=== PATIENT | female | born 1990 | race Caucasian/White ===

== ENCOUNTER 2016-11-07 07:11 | Emergency (ER) | payer OTHER ==
[~2016-11-07] VITALS: Ht 167.6 cm; Wt 111.6 kg
[~2016-11-07 07:11] MED LIST: ADDERALL 10 MG10 MG PO; BACTRIM DS TAB1 EACH PO; CYCLOBENZAPRINE5 MG PO; DEXTROAMP-AMPHE30 MG PO; IBUPROFEN 600600 M1 PO; ULTRAM 50MG TAB50 MG PO
[2016-11-07 08:11] VITALS: BP 127/76
== END 2016-11-07 08:00 | disposition home or self-care (01) ==
LOC: ER 07:11
DX: E04.1 Nontoxic single thyroid nodule (principal); E11.9 Type 2 diabetes mellitus without complications; R51 Headache

== ENCOUNTER 2017-05-08 15:33 | Emergency (ER) | payer OTHER ==
[~2017-05-08] VITALS: Ht 165.1 cm; Wt 113.4 kg
--- NOTE | ~2017-05-08 | EKG ---
[place] [address] [email or web address] [address] ELECTROCARDIOGRAM REPORT Name: SHILO BAHENACAILIN RAMIRO Room #: [facility]#: [id number] Admission: 05/08/17 Attend Phys: Discharge: 05/08/17 Date of : [birth year] Report #: [id number] THIS REPORT FOR: //name// [facility] ED Test Date: 2017-05-08 Test Time: 16:05:28 Pat Name: CAILIN BAHENA Department: Room: Gender: F Rda: REX : 1990 Requested By: Hafsa Aguilera Order Number: [id number] MD: Abhi Escoto Measurements Intervals [place] Rate: 85 P: -9 KS: 152 QRS: 5 QRSD: 87 T: 7 QT: 345 QTc: 411 Interpretive Statements Sinus rhythm Normal tracing Compared to ECG 11/04/2016 18:54:51 No significant changes Electronically Signed On 05-08-2017 17:24:15 [employer]ANDY [employer]UT[employer] by Abhi Escoto [email or web address] <ELECTRONICALLY SIGNED> By: Abhi Escoto MD, [facility] 05/08/17 1724 1605 04 Abhi Escoto MD, FACC /EPI
[2017-05-08] MEDS ORDERED: ATIVAN0.5 MG PO (16:21)
[2017-05-08] MEDS ORDERED: VIBRAMYCIN 100100 M2 PO (16:21)
[2017-11-29] MEDS ORDERED: KEFLEX500 M1 PO (20:24)
[2017-11-29] MEDS ORDERED: MOBIC7.5 MG PO (20:30)
[2017-11-29] MEDS ORDERED: ULTRAM 50MG TAB50 MG PO (20:30)
== END 2017-05-08 16:41 | disposition home or self-care (01) ==
LOC: ER 15:33
DX: L83 Acanthosis nigricans (principal); F41.9 Anxiety disorder, unspecified; R22.1 Localized swelling, mass and lump, neck; E11.9 Type 2 diabetes mellitus without complications; F90.9 Attention-deficit hyperactivity disorder, unspecified type

== ENCOUNTER 2017-12-18 17:52 | Emergency (ER) | payer OTHER ==
[~2017-12-18] VITALS: Ht 154.9 cm; Wt 127.0 kg
[~2017-12-18 17:52] MED LIST changes: +ATIVAN0.5 MG PO; +KEFLEX500 M1 PO; +MOBIC7.5 MG PO; +VIBRAMYCIN 100100 M2 PO
[2017-12-18 18:36] VITALS: BP 135/77
== END 2017-12-18 18:36 | disposition home or self-care (01) ==
LOC: ER 17:52
DX: L02.11 Cutaneous abscess of neck (principal); E11.9 Type 2 diabetes mellitus without complications

== ENCOUNTER 2017-12-28 13:08 | Emergency (ER) | payer OTHER ==
[~2017-12-28] VITALS: Ht 165.1 cm; Wt 105.2 kg
[2017-12-28] MEDS ORDERED: CLEOCIN HCL150 MG PO (13:25)
== END 2017-12-28 13:44 | disposition home or self-care (01) ==
LOC: ER 13:08
DX: Z48.01 Encounter for change or removal of surgical wound dressing (principal); L02.11 Cutaneous abscess of neck; F90.9 Attention-deficit hyperactivity disorder, unspecified type; E11.9 Type 2 diabetes mellitus without complications; E28.2 Polycystic ovarian syndrome

== ENCOUNTER 2018-11-16 11:26 | Emergency (ER) | payer BC, OTHER ==
[~2018-11-16] VITALS: Ht 165.1 cm; Wt 78.5 kg
[~2018-11-16 11:26] MED LIST changes: +CLEOCIN HCL150 MG PO
[2018-11-16 11:52] LABS: URINE BILIRUBIN NEGATIVE (Negative); URINE BLOOD TRACE (Negative); URINE CLARITY SL CLOUDY; URINE COLOR YELLOW; URINE GLUCOSE-RANDOM* NEGATIVE (Negative); URINE KETONES NEGATIVE (Negative); URINE LEUKOCYTES-REFLEX NEGATIVE (Negative); URINE NITRITE-REFLEX NEGATIVE (Negative); URINE PROTEIN (DIPSTICK) NEGATIVE (Negative); URINE SPECIFIC GRAVITY 1.025 (1.005-1.035); URINE UROBILINOGEN 0.2 E.U./dl (0.2-1.0)
[2018-11-16 12:13] LABS: EOSINOPHILS 0.9 % (0.0-3.0); HEMATOCRIT 39.9 % (37.0-47.0); HEMOGLOBIN 13.5 gm/dL (12.0-15.0); LYMPHOCYTES 36.4 % (24.0-44.0); MCHC 33.9 g/dL (28.0-37.0); MCV 79.7 fL (80.0-100.0); MONOCYTES 5.8 % (1.0-8.0); PLATELET COUNT 188 thou/uL (150-400); POLYS 55.9 % (36.0-66.0); RDW 13.3 % (10.5-14.5); WBC 5.4 thou/uL (4.0-11.0)
[2018-11-16 12:17] LABS: ANION GAP 9 mmol/L (7-16); BUN 11 mg/dL (7-18); CALCIUM 9.4 mg/dL (8.5-10.1); CHLORIDE 101 mmol/L (98-107); CO2 28 mmol/L (21-32); CREATININE 0.6 mg/dL (0.6-1.0); GLUCOSE 82 mg/dL (74-106); POTASSIUM 3.7 mmol/L (3.5-5.1); SODIUM 138 mmol/L (136-145)
[2018-11-16 12:26] LABS: ALBUMIN 3.9 g/dL (3.4-5.0); SGOT 11 U/L (15-37); SGPT 13 U/L (30-65); TOTAL BILIRUBIN 1.2 mg/dL (<0.1-1.0); TOTAL PROTEIN 7.9 g/dL (6.4-8.2); TROPONIN-I <0.06 ng/mL (<0.06)
[2018-11-16] MEDS ORDERED: VALIUM2 MG PO (13:42)
[2018-11-16] MEDS ORDERED: BUTALB-APAP-CA1 EACH PO (13:42)
[2018-11-16 14:19] VITALS: BP 112/63
--- NOTE | 2018-11-17 17:22 | EKG ---
[address] [address] [facility] [place] [address] ELECTROCARDIOGRAM REPORT Name: SHILO BAHENACAILIN RAMIRO Room #: [facility]#: [id number] Admission: 11/16/18 Attend Phys: Discharge: 11/16/18 Date of : [birth year] Report #: [id number] THIS REPORT FOR: //name// [facility] ED Test Date: 2018-11-16 Test Time: 11:51:17 Pat Name: CAILIN BAHENA Department: Room: Gender: F Helpdesk Technician: radha : 1990 Requested By: Arturo Moon Order Number: [id number] MD: Abhi Escoto Measurements Intervals [place] Rate: 57 P: -12 UT: 158 QRS: 10 QRSD: 95 T: 9 QT: 421 QTc: 410 Interpretive Statements Sinus bradycardia Otherwise normal tracing Compared to ECG 11/29/2017 17:51:08 No significant changes Electronically Signed On 11-17-2018 17:22:10 CDT by Abhi Escoto [email or web address] <ELECTRONICALLY SIGNED> By: Abhi Escoto MD, [facility] 11/17/18 1722 1151 115 Abhi Escoto MD, FACC /EPI
== END 2018-11-16 14:35 | disposition home or self-care (01) ==
LOC: ER 11:26
PROVIDERS: Emergency Medicine
DX: H81.12 Benign paroxysmal vertigo, left ear (principal); G44.209 Tension-type headache, unspecified, not intractable; E11.9 Type 2 diabetes mellitus without complications; F90.9 Attention-deficit hyperactivity disorder, unspecified type